=== PATIENT | male | born 1995 | race African-American/Black ===

== ENCOUNTER 2016-05-21 16:20 | Emergency (ER) | payer SELFPAY ==
[~2016-05-21] VITALS: Ht 172.7 cm; Wt 75.7 kg
[2016-05-21 17:23] VITALS: BP 116/56
--- NOTE | 2016-05-21 18:53 | ED.ADGEN ---
Physician Documentation Physician Documentation Patient eloped without telling staff before I was able to get into room to see patient. JAY GREEN MD May 21, 2016 18:53
== END 2016-05-21 18:05 | disposition left against medical advice (07) ==
LOC: ER 16:20
DX: R55 Syncope and collapse (principal); R42 Dizziness and giddiness; Z53.21 Procedure and treatment not carried out due to patient leaving prior to being seen by health care provider